=== PATIENT | male | born 1955 | race African-American/Black ===

== ENCOUNTER → 2019-03-17 | Outpatient (CLI) | payer OTHER ==
--- NOTE | 2019-03-17 11:29 | CARD ---
MR#: [id number] Date of Study: 03/17/2019 Ordering Physician: NO PCP, Referring Physician: NO PCP, Tech: Faith Sanders RDCS APPROVED REPORT EXAM: Two-dimensional and M-mode echocardiogram with Doppler and color Doppler. Other Information Quality : AverageHR: 69bpm Rhythm : NSR INDICATION Abn heartrate 2D DIMENSIONS RVDd2.9 (2.9-3.5cm)Left Atrium(2D)3.7 (1.6-4.0cm) IVSd1.4 (0.7-1.1cm)Aortic Root(2D)3.2 (2.0-3.7cm) LVDd4.8 (3.9-5.9cm)LVOT Diameter2.3 (1.8-2.4cm) PWd1.0 (0.7-1.1cm)LVDs3.2 (2.5-4.0cm) FS (%) 33.6 %SV66.8 ml LVEF(%)62.2 (>50%) M-Mode DIMENSIONS Left Atrium(MM)3.31 (2.5-4.0cm)Aortic Root3.44 (2.2-3.7cm) Aortic Valve AoV Peak [place].313.0cm/sAoV VTI83.1cm AO Peak GR.39.2mmHgLVOT Peak [place].122.2cm/s AO Mean GR.22mmHgAVA (VMAX)1.59cm2 JOSUÉ (VTI)1.40kf5CQ P 1/2 [id number] Mitral Valve MV E Lfcpiabn650.3cm/sMV DECEL [id number] MV A Auodjyva908.9cm/sE/A Ratio1.0 Pulmonary Valve PV Peak Aippolfl657.8cm/s Pulmonary Vein S1 Nwfxjcvw37.4cm/sD2 Xfixhpgk38.9cm/s PVa [id number] LEFT VENTRICLE The left ventricle is normal size. Proximal septal thickening is noted. The left ventricular systolic function is normal and the ejection fraction is within normal range. The Ejection Fraction is 60-65% . There is normal LV segmental wall motion. Transmitral Doppler flow pattern is Grade I-abnormal rela xation pattern. RIGHT VENTRICLE The right ventricle is normal size. There is normal right ventricular wall thickness. The right ventr icular systolic function is normal. ATRIA The left atrium size is normal. The right atrium size is normal. The interatrial septum is intact wit h no evidence for an atrial septal defect or patent foramen ovale as noted on 2-D or Doppler imaging. AORTIC VALVE The aortic valve is trileaflet and heavily calcified. Doppler and Color Flow revealed moderate aortic regurgitation. There is moderate valvular aortic stenosis. Calculated aortic valve area is 1.6 cm2 w ith maximum pressure gradient of 39 mmHg and mean pressure gradient of 22 mmHg. MITRAL VALVE The mitral valve is thickened but opens well. There is no evidence of mitral valve prolapse. There is no mitral valve stenosis. Doppler and Color-flow revealed trace to mild mitral regurgitation. TRICUSPID VALVE The tricuspid valve is normal in structure and function. Doppler and Color Flow revealed trace tricus pid regurgitation. There is no tricuspid valve prolapse or vegetation. There is no tricuspid valve st enosis. PULMONIC VALVE The pulmonic valve is not well visualized. GREAT VESSELS The aortic root is normal in size. The ascending aorta is normal in size. The IVC was not visualized. PERICARDIAL EFFUSION There is no evidence of significant pericardial effusion. Critical Notification Critical Value: No <Conclusion> The left ventricular systolic function is normal and the ejection fraction is within normal range. Th e Ejection Fraction is 60-65%. There is normal LV segmental wall motion. There is moderate valvular aortic stenosis. Calculated aortic valve area is 1.6 cm2 with maximum pre ssure gradient of 39 mmHg and mean pressure gradient of 22 mmHg. Signed by : Lewis Cevallos, Electronically Approved : 03/17/2019 11:29:03
== END | disposition home or self-care (01) ==
LOC: ECHO 09:58
PROVIDERS: ATTEND Nurse Practitioner Family
DX: I08.0 Rheumatic disorders of both mitral and aortic valves (principal); I10 Essential (primary) hypertension
CPT/HCPCS: 93306